=== PATIENT | male | born 1950 ===

== ENCOUNTER 2022-06-15 12:02 | Emergency (ER) | payer MEDICARE ==
[~2022-06-15] VITALS: Ht 175.3 cm; Wt 86.4 kg
[2022-06-15 12:29] VITALS: TEMP 97.3
[2022-06-15 13:58] VITALS: BP 173/82
[2022-06-15 17:16] VITALS: PULSE 76
== END 2022-06-15 17:16 | disposition home or self-care (01) ==
LOC: COL.ER 12:02
DX: S09.90XA Unspecified injury of head, initial encounter (principal); S62.524A Nondisplaced fracture of distal phalanx of right thumb, initial encounter for closed fracture; S01.01XA Laceration without foreign body of scalp, initial encounter; S05.12XA Contusion of eyeball and orbital tissues, left eye, initial encounter; Z87.891 Personal history of nicotine dependence; W01.198A Fall on same level from slipping, tripping and stumbling with subsequent striking against other object, initial encounter; Y93.K1 Activity, walking an animal